=== PATIENT | female | born 1960 | race Caucasian/White ===

== ENCOUNTER 2023-04-04 07:56 | Outpatient (OUT) | payer BC, SELFPAY ==
--- NOTE | 2023-04-04 08:11 | ECG_ITS ---
[facility] Test Date: 2023-04-04 Pat Name: CAMERON NICK Department: Room: - Gender: Female [employer] President [employer]: : 1960 Requested By: [id number] Order Number: [id number] Reading MD: TORSTEN MACARIO Measurements Intervals [place] Rate: 58 P: 18 PA: 196 QRS: 14 QRSD: 109 T: -2 QT: 412 QTc: 405 Interpretive Statements SINUS BRADYCARDIA POSSIBLE LEFT VENTRICULAR HYPERTROPHY [VOLTAGE CRITERIA PLUS LAE OR QRS WIDENING] No previous ECG available for comparison Electronically Signed On 04-06-2023 7:05:23 EST by TORSTEN MACARIO
--- NOTE | 2023-04-04 08:46 | P.GSHP_ITS ---
History of Present Illness History of Present Illness Chief complaint: bladder mass Narrative: Patient presents for preadmission testing. Please see HPI from Dr. Reagan dated 03/29/2023. Review of Systems ROS Narrative Please see ROS from Dr. Reagan dated 03/21/2023. PFSH PFS Medical History (Updated 04/04/23 @ 08:31 by Leatha Briones NP) Cervical cancer ?C53.9 - Malignant neoplasm of cervix uteri, unspecified (ICD-10) Dysuria ?R30.0 - Dysuria (ICD-10) Heartburn ?R12 - Heartburn (ICD-10) Hematuria ?R31.9 - Hematuria, unspecified (ICD-10) Hemorrhoid ?K64.9 - Unspecified hemorrhoids (ICD-10) Hypertension ?I10 - Essential (primary) hypertension (ICD-10) Mass of neck of urinary bladder ?N32.89 - Other specified disorders of bladder (ICD-10) Stress incontinence ?N39.3 - Stress incontinence (female) (male) (ICD-10) Urgency of urination ?R39.15 - Urgency of urination (ICD-10) Urinary frequency ?R35.0 - Frequency of micturition (ICD-10) Surgical History (Updated 04/04/23 @ 08:31 by Leatha Briones NP) History of cholecystectomy ?Z90.49 - Acquired absence of other specified parts of digestive tract (ICD- 10) History of colonoscopy ?Z98.890 - Other specified postprocedural states (ICD-10) History of hemorrhoidectomy ?Z98.890 - Other specified postprocedural states (ICD-10) History of hemorrhoidectomy ?Z98.890 - Other specified postprocedural states (ICD-10) History of hysterectomy ?Z90.710 - Acquired absence of both cervix and uterus (ICD-10) S/P cystoscopy ?Z98.890 - Other specified postprocedural states (ICD-10) Family History (Updated 04/04/23 @ 08:31 by Leatha Briones NP) Other Family history of colon cancer Family history of diabetes mellitus Family history of heart disease Family history of hypertension Family history of myocardial infarction Family history of stroke Social History (Updated 04/04/23 @ 08:27 by Leatha Briones NP) Within the past year, how often did you have a drink containing alcohol: never Score interpretation: A score less than 3 is consistent with normal alcohol consumption. Smoking status: Never smoker Highest level of school completed/degree received: high school graduate Meds Home Medications and Allergies Home Medications Medication Instructions Recorded Confirmed Type metoprolol tartrate 50 mg tablet 50 mg PO QPM 04/04/23 04/04/23 History Allergies Allergy/AdvReac Type Severity Reaction Status Date / Time No Known Drug Allergies Allergy Verified 04/04/23 08:25 Exam Narrative Exam Narrative: Constitutional: Awake, alert, comfortable, well-appearing, nontoxic, interactive, vital signs as charted Head: Normocephalic, atraumatic Neck: Supple, normal appearance, normal range of motion, no meningeal signs, no lymphadenopathy Respiratory: No respiratory distress, breath sounds clear Cardiovascular: Regular rate and rhythm, strong and regular heart tones Abdomen: Nontender, normal bowel sounds, soft, no CVA tenderness Musculoskeletal: Normal gait, no swelling or edema Skin: No rashes or induration, no lesions, only visible skin inspected Neuro: No neurological deficits, normal sensation Psychiatric: Oriented ?3, flat affect
[2023-04-04 08:55] LABS: Basophils Absolute Auto 0.1 10^3/uL (0.0-0.1); Basophils Percent Auto 0.6 % (0.2-2.0); Eosinophils Absolute Auto 0.2 10^3/uL (0.0-0.7); Eosinophils Percent Auto 2.4 % (0.9-7.0); Hematocrit 36.8 % (36.0-48.0); Hemoglobin 11.8 g/dL (12.0-16.0); Immature Granulocytes Abs Auto 0.03 10^3/uL (0.00-0.03); Immature Granulocytes Pct Auto 0.3 % (0.0-0.5); Lymphocytes Percent Auto 20.4 % (20.5-60.0); Mean Corpuscular HGB Conc 32.1 g/dL (29.9-35.2); Mean Corpuscular Hemoglobin 27.5 pg (26.7-34.0); Mean Corpuscular Volume 85.8 fL (81.0-99.0); Mean Platelet Volume 9.3 fL (9.5-13.5); Monocytes Absolute Auto 0.6 10^3/uL (0.3-0.8); Monocytes Percent Auto 6.4 % (1.7-12.0); Neutrophils Absolute Auto 6.9 10^3/uL (1.4-6.5); Neutrophils Percent Auto 69.9 % (43.0-75.0); Platelet Count 272 10^3/uL (150-450); Red Blood Count 4.29 10^6/uL (4.20-5.40); Red Cell Distribution Width 14.5 % (11.0-15.0); White Blood Count 9.8 10^3/uL (4.0-11.0)
[2023-04-04 09:14] LABS: Anion Gap 13.1; BUN Creatinine Ratio 19.1; Calcium 9.1 mg/dL (8.5-10.1); Carbon Dioxide 26.8 mmol/L (21.0-32.0); Chloride 103 mmol/L (98-107); Estimated GFR (African America >60 (>=60); Estimated GFR (Non-African Ame >60 (>=60); Glucose 90 mg/dL (74-106); Potassium 3.9 mmol/L (3.5-5.1); Sodium 139 mmol/L (136-145)
== END 2023-04-04 07:57 | disposition home or self-care (01) ==
PROVIDERS: Family Provider Family Medicine; PCP Family Medicine; Visit Provider Urology
DX: Z01.810 Encounter for preprocedural cardiovascular examination (principal); Z01.812 Encounter for preprocedural laboratory examination; R39.89 Other symptoms and signs involving the genitourinary system
CPT/HCPCS: 80048; 85025; 93005; G0463

== ENCOUNTER 2023-04-13 13:40 | Day surgery (SDC) | payer BC, SELFPAY ==
[2023-04-04 08:40] VITALS: BP 166/68; PULSE 62; RESP 20; TEMP 36.3; O2SAT 97; BMI 42.0
[2023-04-13] VITALS (15 sets, daily range): BP systolic 128–189; BP diastolic 52–79; PULSE 57–75; RESP 13–27; TEMP 36–36.4; O2SAT 95–100; BMI 42.1
[2023-04-13] MEDS: LACTATED RINGER'S SOLUTION 1,000 ML 50 ML IV (14:17)
[2023-04-13] MEDS: CEFAZOLIN SODIUM/DEXTROSE,ISO 2 GM/50 ML PIGGYBACK IV (14:17)
--- NOTE | 2023-04-13 15:24 | P.URON_ITS ---
Urology Surgery Operative Note Operative Note Procedure Date: 04/13/23 Time Out Performed: yes Pre-op Diagnosis: Bladder neck tumors Post-op Diagnosis: same as pre-op Procedures performed: Cystoscopy, bladder neck biopsy with fulguration Anesthesia: General-ET (Ann Pepper CRNA) Primary Surgeon: Fiona Reagan Complications: none Estimated blood loss (mL): 1 Findings: Prominent papillary fronds along anterior and right lateral bladder neck cold cup biopsied and carefully fulgurated. Area was not overly cauterized to prevent stricture. Small bladder capacity, 1+ trabeculations. No bladder tumors, lesions or stones. Posterior vaginal wall prolapse at introitus. Moderate vaginal atrophy with very small urethral caruncle. Specimens: bladder neck tumor Drains: 16Fr 2-way austin catheter, 15 cc in balloon Indications for Procedures: 62 year old female with gross hematuria and findings of prominent papillary fronds around blader neck/proximal urethra on cystoscopy. Urine cytology negative, CT Urogram possible left nephrolithiasis without urinary abnormalities or filling defects. After discussion of risks/benefits of management options, patient elected to proceed to the OR for biopsy as above. Risks were discussed including but not limited to bleeding, pain, infection, stricture, incontinence, damage to surrounding structures and need for additional procedures. Detailed description of Procedure: After informed consent was obtained, the patient was brought to the operating room and transferred onto the operating table in supine position. Sequential compression devices were placed on bilateral lower extremities. The patient received the appropriate dose of preoperative IV antibiotics and general anesthesia was induced. They were positioned in modified dorsolithotomy with the appropriate pressure points padded, prepped, and draped in the usual sterile fashion for this procedure. An operative safety timeout was performed confirming the patient's identity, laterality and procedure, and all present agreed to proceed. I began by inserting a 22 [place] rigid cystoscope with 30 degree lens into the patient's urethra and bladder without difficulty. Findings as above, there were no other bladder tumors, lesions, stones or foreign bodies. Bilateral ureteral orifices were orthotopic and patent. A rigid cold cup biopsy forceps were used to obtain samples of the irregular mucosa along the anterior and right bladder neck/proximal urethra. These were sent for pathology. Monopolar bugbee was used for pinpoint electrocautery of any active bleeding. Adequate hemostasis was achieved. The bladder was drained to ensure no specimens were left behind. The bladder was filled and cystoscope was removed. A 16fr austin catheter was inserted into the bladder without difficulty, 15 cc in balloon. The patient tolerated the procedure well without complication. The patient was awakened from anesthesia and sent to the PACU in stable condition. Plan: Dc austin at home in 2 days or once urine is clear. Follow up in 1-2 weeks in the office for pathology review. Other Provider present: No Post Operative care instructions: see dc instructions
--- NOTE | 2023-04-13 16:40 | PC.NURSE ---
[place] catheter care was reviewed with patient, as well as austin removal as she will be removing it herself at home. Educated on the leg bag and overnight bag,as well as emptying of both bags. Patient voiced no concerns and understanding of teaching provided.
== END 2023-04-13 16:30 | disposition home or self-care (01) ==
PROVIDERS: Family Provider Family Medicine; PCP Family Medicine; Visit Provider Urology
PROC: (CPT 910; principal; 2023-04-13 14:30)
DX: N30.81 Other cystitis with hematuria (principal); I10 Essential (primary) hypertension; Z85.41 Personal history of malignant neoplasm of cervix uteri; R30.0 Dysuria; R39.15 Urgency of urination; R35.0 Frequency of micturition; Z90.49 Acquired absence of other specified parts of digestive tract; Z90.710 Acquired absence of both cervix and uterus; R39.9 Unspecified symptoms and signs involving the genitourinary system; N39.3 Stress incontinence (female) (male); E66.01 Morbid (severe) obesity due to excess calories; Z68.41 Body mass index [BMI] 40.0-44.9, adult
CPT/HCPCS: 52204; 36415; 88305; J2704

== ENCOUNTER 2023-04-15 11:31 | Outpatient (OUT) | payer BC, SELFPAY ==
--- NOTE | 2023-04-15 11:36 | US_ITS ---
[address] [address] Patient Name: CAMERON NICK MRN: [facility]:[id number] date: 1960 Sex: F Assigned Patient Location: Current Patient Location: US Accession/Order Number: [id number] Exam Date: 04/15/2023 11:38 Report Date: 04/15/2023 13:46 At the request of: KERI ALLEN Procedure: US carotid duplex BI EXAMINATION: US carotid duplex BI HISTORY: Right Carotid Bruit R09.89 COMPARISON: No relevant comparison available. TECHNIQUE: Duplex Doppler ultrasound analysis of carotid and vertebral arteries. . Bilateral carotid arterial duplex examination was performed using B-mode, color flow and spectral analysis. Carotid stenosis is reported according to validated velocity parameters, similar to NASCET criteria. FINDINGS: RIGHT CAROTID ARTERY Mild atherosclerotic plaque Subclavian: PSV: 178.7 cm/s cm/s EDV: 0.0 cm/s cm/s CCA: Prox: PSV: 155.4 cm/s cm/s EDV: 11.4 cm/s cm/s Mid: PSV: 120.5 cm/s cm/s EDV: 18.3 cm/s cm/s Distal: PSV: 64.8 cm/s cm/s EDV: 6.7 cm/s cm/s BULB: PSV: 59.4 cm/s cm/s EDV: 7.6 cm/s cm/s ICA: Prox: PSV: 60.7 cm/s cm/s EDV: 12.8 cm/s cm/s Mid: PSV: 77.5 cm/s cm/s EDV: 16.7 cm/s cm/s Distal: PSV: 71.0 cm/s cm/s EDV: 16.7 cm/s cm/s ECA: PSV: 73.6 cm/s cm/s EDV: 0.0 cm/s cm/s VERTEBRAL: PSV: 42.6 cm/s cm/s EDV: 8.9 cm/s cm/s, antegrade ICA/CCA ratio: PSV: 0.5 EDV: 1.5 LEFT CAROTID ARTERY Mild atherosclerotic plaque Subclavian: PSV: 172.4 cm/s cm/s EDV: 0.0 cm/s CCA: Prox: PSV: 122.2 cm/s cm/s EDV: 0.0 cm/s Mid: PSV: 116.6 cm/s cm/s EDV: 10.9 cm/s Distal: PSV: 111.0 cm/s cm/s EDV: 10.9 cm/s BULB: PSV: 86.0 cm/s cm/s EDV: 10.8 cm/s ICA: Prox: PSV: 62.8 cm/s cm/s EDV: 11.1 cm/s Mid: PSV: 80.6 cm/s cm/s EDV: 17.6 cm/s Distal: PSV: 82.2 cm/s cm/s EDV: 19.2 cm/s ECA: PSV: 80.6 cm/s cm/s EDV: 17.6 cm/s VERTEBRAL: PSV: 40.6 cm/s cm/s EDV: 8.7 cm/s, antegrade ICA/CCA ratio: PSV: 0.7 EDV: US/US carotid duplex BI IMPRESSION: 0-49% flow stenosis bilateral internal carotid arteries Spectral Doppler US Thresholds (Reference: Ashvin EG, et al. Radiology 2000; 214:247-252) Stenosis (%) PSV (cm/sec) VICA/VCCA 0-49 <150 <2.5 50-69 150-225 2.5-4.0 >70 >225 >4.0 Electronically authenticated by: BRIANNA ADAMS Date: 04/15/2023 13:46
== END 2023-04-15 11:32 | disposition home or self-care (01) ==
LOC: US 11:31
PROVIDERS: Family Provider Family Medicine; PCP Family Medicine; Visit Provider Family Medicine
DX: R09.89 Other specified symptoms and signs involving the circulatory and respiratory systems (principal)
CPT/HCPCS: 93880